=== PATIENT | male | born 1980 | race African-American/Black ===

== ENCOUNTER 2021-08-13 10:06 | Inpatient (IN) | payer MEDICAID, SELFPAY ==
[~2021-08-13] VITALS: Ht 193 cm; Wt 135.6 kg
[2021-08-13 10:06] VITALS: BP_SYST 131
[~2021-08-13 10:06] MED LIST: DEC4 PO; DOXY100C PO; FAMO20TA8 PO
--- NOTE | 2021-08-13 10:06 | NUR ---
Patient triaged and placed in waiting room. VSS and patient appears in no acute distress at this time. Accompanied by SELF, awaiting available bed, and MD notified of need for MSE.
--- NOTE | 2021-08-13 10:28 | NUR ---
DR FALLON OUT TO SEE PT IN OUTSIDE TRIAGE TENT
--- NOTE | 2021-08-13 10:50 | NUR ---
MARTINEZ Tracy in tent examining patient.
[2021-08-13 11:12] LABS: BASOPHILS # (AUTO) 0.1 K/uL (0.0-0.2); BASOPHILS % (AUTO) 0.4 % (0.0-2.0); EOSINOPHILS # (AUTO) 0.4 K/uL (0.0-0.4); EOSINOPHILS % (AUTO) 2.3 % (0.0-4.0); HEMATOCRIT 38.6 % (36-54); HEMOGLOBIN 12.9 g/dL (14.0-18.0); LYMPHOCYTES # (AUTO) 1.8 K/uL (1.0-5.5); LYMPHOCYTES % (AUTO) 11.1 % (20.5-51.5); MEAN CORPUSCULAR HEMOGLOBIN 30 pg (27-31); MEAN CORPUSCULAR HGB CONC 34 % (32-36); MEAN CORPUSCULAR VOLUME 89 fL (79.0-98.0); MONOCYTES # (AUTO) 1.6 K/uL (0.0-1.0); MONOCYTES % (AUTO) 9.8 % (1.7-9.3); NEUTROPHILS # (AUTO) 12.2 K/uL (1.8-7.7); NEUTROPHILS % (AUTO) 76.4 % (40.0-70.0); PLATELET COUNT (AUTO) 107 K/uL (130-430); RED BLOOD CELL COUNT(AUTO) 4.32 MIL/uL (4.2-6.2); WHITE BLOOD COUNT (AUTO) 15.9 K/uL (4.8-10.8)
[2021-08-13 11:32] LABS: CALCIUM 8.6 mg/dL (8.4-11.0); CREATININE 1.4 mg/dL (0.55-1.30); POTASSIUM 3.2 mmol/L (3.5-5.1)
[2021-08-13 11:38] LABS: ALBUMIN 2.5 g/dL (3.4-4.8); TOTAL BILIRUBIN 1.1 mg/dL (0.0-1.0)
--- NOTE | 2021-08-13 11:40 | NUR ---
urine specimen cup given and POC reviewed, pt sent to bathroom
[2021-08-13 12:00] LABS: BILIRUBIN,URINE 1+ (NEGATIVE); CLARITY/URINE CLEAR (CLEAR); COLOR,URINE YELLOW (YELLOW); GLUCOSE,URINE NEGATIVE (NEGATIVE); KETONES,URINE NEGATIVE (NEGATIVE); LEUKOCYTE ESTERASE ,URINE NEGATIVE (NEGATIVE); NITRITE, URINE NEGATIVE (NEGATIVE); PH,URINE 5.5 (5.0-8.0); PROTEIN URINE TRACE (NEGATIVE); UROBILINOGEN,URINE 0.2 (0.2-1.0)
[2021-08-13 12:06] LABS: BLOOD, URINE TRACE (NEGATIVE)
[2021-08-13] MEDS ORDERED: ACETAMINOPHEN 500 MG TABLET PO ONE (12:15)
[2021-08-13 12:21] LABS: BACTERIA,URINE None Seen /HPF (None Seen); WBC,URINE 0-3 /HPF (0-3)
[2021-08-13] MEDS ORDERED: cefTRIAXone 1 GM in D5W 50 ML IV ONE (13:00)
[2021-08-13] MEDS ORDERED: metroNIDAZOLE 500 mg/NS 100 ML IV ONE ×2 (13:00→17:45)
--- NOTE | 2021-08-13 13:00 | NUR ---
Pt. takes no home meds.
[2021-08-13] MEDS ORDERED: KCL 10 mEq in 50 mL (PREMIX) 50 ML IV ONE (13:15)
--- NOTE | 2021-08-13 13:44 | NUR ---
Notified ED Admitting regarding Dr. Cortes request for admission
[2021-08-13] MEDS ORDERED: cefTRIAXone 1 GM VIAL ONE (13:59)
--- NOTE | 2021-08-13 15:04 | NUR ---
Dr. Cortes aware of pts. pain, no new pain orders rec'd, Dr. Serrano will go talk to pt.
--- NOTE | 2021-08-13 15:24 | NUR ---
pt. remains in tent, unable to place on equipment monitor phototypesetting so holding potassium at this time
--- NOTE | 2021-08-13 16:10 | NUR ---
Rosa, life insurance agent, called back and stated that of the [facility] has no beds and gave auth to admit. stated to use her name and todays date as authJaquelin BARTH 08/13/2021
--- NOTE | 2021-08-13 16:12 | NUR ---
Rosa requested fax of facesheet and clinicals to [phone]
--- NOTE | 2021-08-13 17:12 | NUR ---
Patient to ER bed 6 for continuation of care. Side rails up.
--- NOTE | 2021-08-13 17:35 | NUR ---
Dr. Cosme at bedside reviewing POC
[2021-08-13] MEDS ORDERED: cefTRIAXone 1 GM IVPB PREMIX 50 ML IV ONE (18:45)
--- NOTE | 2021-08-13 19:15 | NUR ---
report to pm shift
--- NOTE | 2021-08-13 19:45 | NUR ---
Patient will be admitted to care of Dr. Foley. Admitted to Med Surg unit. Complete and up to date summary report printed. SBAR report to be given at bedside with opportunity for questions.
--- NOTE | 2021-08-13 20:32 | NUR ---
patient resting comfortably in [facility]. no acute distress no voiced complaints.
--- NOTE | 2021-08-13 21:52 | NUR ---
Patient resting quietly in bed. No acute distress noted. Given water and warm blanket. All needs addressed at this time. awaiting bed placement.
--- NOTE | 2021-08-13 23:31 | NUR ---
Patient asleep in bed. No acute distress noted. Awaiting bed placement
--- NOTE | 2021-08-14 00:59 | NUR ---
Transfer to [facility]. IV present no sign or symptom of infiltration.
--- NOTE | 2021-08-14 01:10 | NUR ---
ADMISSION NOTE Received patient from ER via gurney. Patient admitted with diagnosis of Diverticulitis, COVID positive. Patient is awake, alert, oriented X 4. Patient oriented to hospital room, call light, toileting, pain management and safety-teach back done. Patient informed that LAZARO Lacy will be primary nurse and that their room number is 115A. Personal belongings checked and Belongings List documented. Call light within reach.
[2021-08-14 01:58] VITALS: BP_SYST 122
[2021-08-14] MEDS ORDERED: FLU VACC QS2021-22(6MOS UP)/PF 0.5 ML/SYR SYRINGE I.M. PRN (02:00)
[2021-08-14] MEDS: D5/0.45 NS 1,000 ML IV SCH ×3 (04:08→15:33)
[2021-08-14 08:34] VITALS: BP_SYST 117
--- NOTE | 2021-08-14 10:39 | NUR ---
NURSE NOTE Pt has no c/o. No s/s of distress. A&Ox4. Skin intact. Fresh water provided to pt. Cleared room of clutter. Bed in lowest position and call light is within reach.
[2021-08-14 10:41] LABS: BASOPHILS % (AUTO) 0.3 % (0.0-2.0); EOSINOPHILS # (AUTO) 0.3 K/uL (0.0-0.4); EOSINOPHILS % (AUTO) 2.5 % (0.0-4.0); HEMATOCRIT 34.4 % (36-54); HEMOGLOBIN 11.8 g/dL (14.0-18.0); LYMPHOCYTES # (AUTO) 1.5 K/uL (1.0-5.5); LYMPHOCYTES % (AUTO) 12.9 % (20.5-51.5); MEAN CORPUSCULAR HEMOGLOBIN 31 pg (27-31); MEAN CORPUSCULAR HGB CONC 34 % (32-36); MEAN CORPUSCULAR VOLUME 89 fL (79.0-98.0); MONOCYTES # (AUTO) 1.2 K/uL (0.0-1.0); NEUTROPHILS # (AUTO) 8.6 K/uL (1.8-7.7); NEUTROPHILS % (AUTO) 74.3 % (40.0-70.0); PLATELET COUNT (AUTO) 124 K/uL (130-430); RED BLOOD CELL COUNT(AUTO) 3.87 MIL/uL (4.2-6.2); RED CELL DISTRIBUTION WIDTH 13.3 % (9.0-15.0); WHITE BLOOD COUNT (AUTO) 11.6 K/uL (4.8-10.8)
[2021-08-14 10:51] LABS: CALCIUM 8.4 mg/dL (8.4-11.0); CREATININE 1.15 mg/dL (0.55-1.30); POTASSIUM 3.4 mmol/L (3.5-5.1)
[2021-08-14] MEDS ORDERED: LORazepam 2 MG/ML VIAL IVP PRN (11:45)
[2021-08-14] MEDS: DECADRON 4 MG TABLET PO SCH (11:45)
[2021-08-14] MEDS ORDERED: ACETAMINOPHEN 325 MG TABLET PO PRN (11:45)
[2021-08-14] MEDS ORDERED: ONDANSETRON HCL 4 MG/2 ML VIAL IVP PRN (11:45)
[2021-08-14] MEDS ORDERED: HYDROcodone/ACETAMIN 10-325 MG TAB PO PRN (11:45)
[2021-08-14] MEDS ORDERED: IPRATROPIUM BROM 0.5 MG/2.5 ML VIAL.NEB (ATROVENT) INH PRN (11:45)
[2021-08-14] MEDS ORDERED: NALOXONE HCL 0.4 MG/ML AMP (NARCAN) IVP PRN ×2 (11:45)
[2021-08-14] MEDS ORDERED: ALBUTEROL SULFATE 0.083% 2.5 MG/3 ML VIAL.NEB INH PRN (11:45)
[2021-08-14] MEDS ORDERED: HYDROcodone/ACETAMIN 5-325 MG TAB (NORCO/ VICODIN) PO PRN (11:45)
--- NOTE | 2021-08-14 12:21 | NUR ---
NURSE NOTE Fresh water given to pt. Pt has no IV. Setup an IV set at bedside to place an IV. Pt aware.
[2021-08-14] MEDS: metroNIDAZOLE 500 MG TABLET PO SCH ×2 (13:47→20:09)
[2021-08-14] MEDS ORDERED: metroNIDAZOLE 500 mg/NS 100 ML IV SCH (14:00)
--- NOTE | 2021-08-14 14:15 | NUR ---
NURSE NOTE More fresh water given to pt 1l with ice and also jello was given to pt. A IV 20g was placed on pt's right AC. No infiltration noted. Pt has no c/o. All scheduled medications have been given at this time. A PCR covid swab was done and sent to lab. Pt's mother called for an update, educated mother on pt's care plan. Pt's mother verbalized understanding with no further questions. Pt A&Ox4. On his cellphone. Skin intact. bed in lowest position and call light is within reach.
[2021-08-14 15:09] VITALS: BP_SYST 127
[2021-08-14] MEDS: AMPICILLIN SODIUM/SULBACTAM NA 3 GM in NS 100 ML IV SCH (17:48)
[2021-08-14 18:46] VITALS: BP_SYST 129
--- NOTE | 2021-08-14 18:47 | NUR ---
NURSE NOTE Pt has fresh water at bedside. Dinner was served on a full liquid diet. Currently running on d5 5% with 1/2 NS 100ml/hr on his right 20g IV. IV is patent. Pt keeps saying he wants to speak to the doctor because he wants to go home. and mother of pt are upset because they feel the patient does not need to be there. Offered to pt that he can leave AMA and doctor is aware. Pt agreed to stay because he wants his prescriptions. Educated the pt the risks of leaving AMA and educated pt the benefits and risks of staying hospitalized. Pt verbalized understanding with no further questions. Pt did state he wants to speak to the doctor still. Doctor Foley paged and awaiting call so pt can speak with him.
[2021-08-14 20:00] VITALS: BP_SYST 122
[2021-08-14] MEDS ORDERED: DOXYCYCLINE HYCLATE 100 MG CAPSULE PO SCH (21:00)
[2021-08-14] MEDS ORDERED: CIPROFLOXACIN HCL 500 MG TABLET PO SCH (22:00)
[2021-08-15] VITALS: BP_SYST 128
[2021-08-15] MEDS: D5/0.45 NS 1,000 ML IV SCH ×3 (01:45→21:45)
[2021-08-15] MEDS: metroNIDAZOLE 500 MG TABLET PO SCH ×3 (05:34→20:33)
[2021-08-15] MEDS: AMPICILLIN SODIUM/SULBACTAM NA 3 GM in NS 100 ML IV SCH ×5 (05:34→18:35)
[2021-08-15 08:08] LABS: BASOPHILS % (AUTO) 0.2 % (0.0-2.0); EOSINOPHILS # (AUTO) 0.1 K/uL (0.0-0.4); EOSINOPHILS % (AUTO) 0.4 % (0.0-4.0); HEMATOCRIT 35.7 % (36-54); HEMOGLOBIN 12.1 g/dL (14.0-18.0); LYMPHOCYTES # (AUTO) 1.6 K/uL (1.0-5.5); LYMPHOCYTES % (AUTO) 11.7 % (20.5-51.5); MEAN CORPUSCULAR HEMOGLOBIN 31 pg (27-31); MEAN CORPUSCULAR HGB CONC 34 % (32-36); MEAN CORPUSCULAR VOLUME 91 fL (79.0-98.0); MONOCYTES # (AUTO) 1.3 K/uL (0.0-1.0); MONOCYTES % (AUTO) 9.5 % (1.7-9.3); NEUTROPHILS # (AUTO) 10.7 K/uL (1.8-7.7); NEUTROPHILS % (AUTO) 78.2 % (40.0-70.0); PLATELET COUNT (AUTO) 128 K/uL (130-430); RED BLOOD CELL COUNT(AUTO) 3.94 MIL/uL (4.2-6.2); RED CELL DISTRIBUTION WIDTH 13.3 % (9.0-15.0); WHITE BLOOD COUNT (AUTO) 13.7 K/uL (4.8-10.8)
[2021-08-15 08:09] LABS: CALCIUM 8.8 mg/dL (8.4-11.0); CREATININE 1.06 mg/dL (0.55-1.30); POTASSIUM 4.4 mmol/L (3.5-5.1)
[2021-08-15 08:22] VITALS: BP_SYST 141
[2021-08-15] MEDS: FAMOTIDINE 20 MG TABLET PO SCH (09:19)
--- NOTE | 2021-08-15 10:25 | NUR ---
NURSE NOTE Pt in bed resting playing video games on his game tablet. Pt is calm but upset that he is still in the hospital and that the doctor has not talked to him. Fresh water was given to pt and soft mechanical diet was served for breakfast. Pt ate 100% of his meal, tray was removed from his room. VSS. Skin intact. IV intact with no infiltration noted. A&Ox4. Ambulatory with steady gait. All scheduled medications have been given at this time. Pt has no fluids running. mini shifter nurse stopped fluids due to pt stating he only wants his IV to be used for antibiotics nothing else. Bed in lowest position and call light within reach.
--- NOTE | 2021-08-15 10:40 | NUR ---
NURSE NOTE Paged Dr. Foley in regards to pt's WBC which is at 13.7. Waiting for call back.
--- NOTE | 2021-08-15 10:49 | NUR ---
NURSE NOTE responded back in regards to pt not having an IV and refusing IV medications. WBC at 7.4. Dr. Morin stated he will come and take a look at his diabetic wounds. Addendum: 08/15/21 at 1052 by Thirty gauge and weigh machine adjuster called back and he was made aware that pt has WBC of 13.7. He stated that was fine and that he will do a ID consult.
[2021-08-15] MEDS: DECADRON 4 MG TABLET PO SCH (11:23)
[2021-08-15 12:43] VITALS: BP_SYST 135
--- NOTE | 2021-08-15 14:36 | NUR ---
CONSULTATION PAGED/CALLED Reason for Consultation: [] ABD PAIN Person Who was Notified: [] MARY LOU Consulting Physician: [] DR Rosa SCHAFER Enterprise Integration Architect Specialty: [] GI Ordering Physician: [] DR EATON
--- NOTE | 2021-08-15 14:37 | NUR ---
CONSULTATION PAGED/CALLED Reason for Consultation: [] COVID Person Who was Notified: [] MARY LOU Consulting Physician: [] DR MEADOWS Video Technician Specialty: [] ID Ordering Physician: [] DR EATON
--- NOTE | 2021-08-15 15:13 | NUR ---
NURSE NOTE Pt in bed resting with no s/s of distress. Pt has no c/o. Pt ate all of his breakfast and lunch 100%. Skin is intact. Fresh water with ice was given at bedside. All scheduled medications have been given to pt at this time. Dr. Morin saw pt and explained to pt his condition and that he will place a GI consult. Pt aware and verbalized understanding with no further questions. Pt is A&Ox4. VSS. Bed in lowest position and call light is within reach. IV patent and intact.
[2021-08-15 17:18] VITALS: BP_SYST 126
[2021-08-15 20:00] VITALS: BP_SYST 122
[2021-08-16] VITALS: BP_SYST 112
[2021-08-16] MEDS: AMPICILLIN SODIUM/SULBACTAM NA 3 GM in NS 100 ML IV SCH ×4 (00:05→23:39)
[2021-08-16] MEDS: metroNIDAZOLE 500 MG TABLET PO SCH ×3 (05:33→23:39)
[2021-08-16] MEDS: D5/0.45 NS 1,000 ML IV SCH (07:45)
[2021-08-16 08:00] VITALS: BP_SYST 111
--- NOTE | 2021-08-16 08:00 | NUR ---
Opening notes: Pt A/Ox4 sitting in chair, VVS, No s/s of respiratory distress. IV site clean dry and intact. Fall and safety precautions in place, call light with in reach, will continue to monitor.
[2021-08-16] MEDS: FAMOTIDINE 20 MG TABLET PO SCH (09:15)
[2021-08-16] MEDS: DECADRON 4 MG TABLET PO SCH (12:50)
[2021-08-16 16:00] VITALS: BP_SYST 114
--- NOTE | 2021-08-16 17:07 | NUR ---
Dietitian Recommendations * Recommend soft (low fiber/bland) diet w/ Ensure Clear TID, Ja BID (supplements yield 900 kcal/day, 29 gm protein/day) JOSS, RD Please refer to Nutrition Assessment for details. Addendum: 08/16/21 at [address] Amended: Links added.
--- NOTE | 2021-08-16 18:28 | NUR ---
Closing notes: Pt A/Ox4, eating dinner in chair. No s/s of respiratory distress, no complains of pain or discomfort. Pt states he wants to go home and said ID cleared him, but no discharge planning orders yet. IV clean, dry and intact. Isolation, safety and fall precautions in place, call light with in reach, will endorse to shift supervisor melting.
--- NOTE | 2021-08-16 19:50 | NUR ---
Opening note Patient is awake, resting in bed, no distress. He is talking on cell phone. Nonlabored breathing on room air, denies pain. IV on RAC is saline locked. Call light w/in reach.
[2021-08-16 20:00] VITALS: BP_SYST 118
[2021-08-17 00:05] VITALS: BP_SYST 111
[2021-08-17] MEDS: D5/0.45 NS 1,000 ML IV SCH (01:43)
[2021-08-17] MEDS: AMPICILLIN SODIUM/SULBACTAM NA 3 GM in NS 100 ML IV SCH (06:28)
[2021-08-17] MEDS: metroNIDAZOLE 500 MG TABLET PO SCH (06:28)
[2021-08-17 08:00] VITALS: BP_SYST 138
[2021-08-17 09:31] LABS: BASOPHILS % (AUTO) 0.3 % (0.0-2.0); EOSINOPHILS % (AUTO) 0.3 % (0.0-4.0); HEMATOCRIT 38.1 % (36-54); HEMOGLOBIN 12.9 g/dL (14.0-18.0); LYMPHOCYTES # (AUTO) 2.4 K/uL (1.0-5.5); LYMPHOCYTES % (AUTO) 19.3 % (20.5-51.5); MEAN CORPUSCULAR HEMOGLOBIN 30 pg (27-31); MEAN CORPUSCULAR HGB CONC 34 % (32-36); MEAN CORPUSCULAR VOLUME 89 fL (79.0-98.0); MONOCYTES # (AUTO) 0.8 K/uL (0.0-1.0); MONOCYTES % (AUTO) 6.3 % (1.7-9.3); NEUTROPHILS # (AUTO) 9.3 K/uL (1.8-7.7); NEUTROPHILS % (AUTO) 73.8 % (40.0-70.0); PLATELET COUNT (AUTO) 169 K/uL (130-430); RED BLOOD CELL COUNT(AUTO) 4.29 MIL/uL (4.2-6.2); WHITE BLOOD COUNT (AUTO) 12.6 K/uL (4.8-10.8)
[2021-08-17 09:50] LABS: CALCIUM 8.7 mg/dL (8.4-11.0); CREATININE 1.15 mg/dL (0.55-1.30)
[2021-08-17] MEDS: FAMOTIDINE 20 MG TABLET PO SCH (10:24)
[2021-08-17] MEDS ORDERED: AMOX-426 PO (10:38)
[2021-08-17] MEDS ORDERED: METR500T PO (10:38)
[2021-08-17 11:09] VITALS: BP_SYST 138
[2021-08-17] MEDS: DECADRON 4 MG TABLET PO SCH (11:45)
--- NOTE | 2021-08-17 11:50 | NUR ---
NURSING NOTES 0700-1150AM: 0710AM: PATIENT IS RESTING IN BED QUIETLY. NO ADDITIONAL DISTRESS NOTED. BED IN LOW AND LOCK POSITION. CALL LIGHT WITHIN REACH. STABLE CONDITION AT THIS TIME. CONT WITH DROPLET PRECAUTION DUE TO + COVID. 0800AM: EXPLAINED POC AND PATIENT VERBALIZED UNDERSTANDING. WILL CONT TO MONITOR. 1000AM: PATIENT IS SITTING UP IN THE CHAIR WATCHING VIDEOS ON HIS PHONE. NO ADDITIONAL DISTRESS NOTED. RA 97%. WILL CONT TO MONITOR. 1130AM: DC INSTRUCTIONS GIVEN AND EXPLAINED WELL PRESCRIPTION (ABT). PATIENT VERBALIZED UNDERSTANDING. IV REMOVED FROM THE RAC. IV CATH INTACT WHEN REMOVED. NO BLEEDING NOTED. COVER SITE WITH GAUZE AND SECURE WITH TAPE. AWAITING FOR PATIENT'S MOTHER TO PICK PATIENT UP. 1150AM: PATIENT LEFT THE UNIT IN A STABLE CONDITION ACCOMPANIED BY THE PRIMARY NURSE. PATIENT REFUSED WC BUT RATHER WALK. PATIENT IS ABLE TO AMBULATED INDEPENDENTLY WITH STEADY GAIT. ALL PERSONAL BELONGINGS GIVEN TO PATIENT AND DENIES MISSING ITEMS. REFUSED TO TAKE STEROID PO AT THIS TIME AND STATED HE WILL TAKE IT AT HOME. PICKED UP BY PATIENT'S MOTHER. NO ADDITIONAL DISTRESS NOTED.
== END 2021-08-17 11:50 | disposition home or self-care (01) | DRG 244 ==
LOC: SED 11:43 → SMU 19:42
PROVIDERS: ADMIT Preventive Medicine Preventive Medicine/Occupational Environmental Medicine; ATTEND Preventive Medicine Preventive Medicine/Occupational Environmental Medicine
DX: K57.92 Diverticulitis of intestine, part unspecified, without perforation or abscess without bleeding (principal); U07.1 COVID-19; N17.9 Acute kidney failure, unspecified; E87.1 Hypo-osmolality and hyponatremia; E88.09 Other disorders of plasma-protein metabolism, not elsewhere classified; E87.6 Hypokalemia; E66.9 Obesity, unspecified; N28.1 Cyst of kidney, acquired; N28.89 Other specified disorders of kidney and ureter; Z68.36 Body mass index [BMI] 36.0-36.9, adult
CPT/HCPCS: 36415; 76376; 80048; 80053; 81000; 82728; 83690; 85025; 85379; 86140; 87081; 96365; 96367; 96375; 99285; J0295; J0696; J3480; J8540; U0003

== ENCOUNTER 2022-04-30 08:51 | Emergency (ER) | payer MEDICAID ==
[~2022-04-30] VITALS: Ht 193 cm; Wt 138.3 kg
[~2022-04-30 08:51] MED LIST changes: +AMOX-426 PO; +METR500T PO
[2022-04-30 08:58] VITALS: BP_SYST 137
--- NOTE | 2022-04-30 09:00 | NUR ---
Placed in room 8 . Placed on medical records custodian, blood pressure machine and pulse oximeter. To gown for exam. Side rails up. Report given to LAZARO ABDUL.
--- NOTE | 2022-04-30 09:05 | NUR ---
PT CAME IN FROM HOME, REPORTS YESTERDAY HE HAD TO URINATE BUT WAS NOT IN A PLACE WHERE HE COULD, SO HE HELD THE TIP OF HIS PENIS WITH HIS HAND, HEARD A POP. THEN HAD PAIN AND BLEEDING WHEN HE DID URINATE, STILL HAVING PAIN. DENIES BLEEDING NOW WITH URINATION BUT WOULD LIKE TO BE SEEN BY A PHYSICIAN. PT IS AMBULATORY, AAOX4, VSS
--- NOTE | 2022-04-30 09:10 | NUR ---
ER DR. ROSARIO EXAMINING PT
[2022-04-30 10:13] LABS: BASOPHILS % (AUTO) 0.4 % (0.0-2.0); EOSINOPHILS # (AUTO) 0.1 K/uL (0.0-0.4); EOSINOPHILS % (AUTO) 2.3 % (0.0-4.0); LYMPHOCYTES # (AUTO) 2.3 K/uL (1.0-5.5); LYMPHOCYTES % (AUTO) 41.5 % (20.5-51.5); MEAN CORPUSCULAR VOLUME 91 fL (79.0-98.0); MONOCYTES # (AUTO) 0.4 K/uL (0.0-1.0); NEUTROPHILS # (AUTO) 2.7 K/uL (1.8-7.7); NEUTROPHILS % (AUTO) 47.8 % (40.0-70.0); PLATELET COUNT (AUTO) 103 K/uL (130-430); RED BLOOD CELL COUNT(AUTO) 4.51 MIL/uL (4.2-6.2); RED CELL DISTRIBUTION WIDTH 13.2 % (9.0-15.0); WHITE BLOOD COUNT (AUTO) 5.6 K/uL (4.8-10.8)
[2022-04-30 10:19] LABS: CALCIUM 8.8 mg/dL (8.4-11.0); CREATININE 1.24 mg/dL (0.55-1.30); POTASSIUM 4.3 mmol/L (3.5-5.1)
--- NOTE | 2022-04-30 10:32 | NUR ---
Urine specimen collected and forwarded to lab. Results given to MARTINEZ WHYTE.
[2022-04-30 11:13] LABS: BILIRUBIN,URINE NEGATIVE (NEGATIVE); BLOOD, URINE NEGATIVE (NEGATIVE); CLARITY/URINE CLEAR (CLEAR); COLOR,URINE YELLOW (YELLOW); GLUCOSE,URINE NEGATIVE (NEGATIVE); KETONES,URINE NEGATIVE (NEGATIVE); LEUKOCYTE ESTERASE ,URINE NEGATIVE (NEGATIVE); NITRITE, URINE NEGATIVE (NEGATIVE); PROTEIN URINE NEGATIVE (NEGATIVE); UROBILINOGEN,URINE 0.2 (0.2-1.0)
[2022-04-30] MEDS ORDERED: NITR-85 PO (12:02)
--- NOTE | 2022-04-30 12:45 | NUR ---
Patient given written and verbal discharge instructions and verbalizes understanding. ER Dr. Gerri WHYTE discussed with patient the results and treatment provided. Patient in stable condition. ID arm band removed. IV catheter removed intact and dressing applied, no active bleeding. Rx of Macrobid given. Patient educated on pain management and to follow up with PMD. Pain Scale 6/10. Opportunity for questions provided and answered. Medication side effect fact sheet provided.
== END 2022-04-30 12:45 | disposition home or self-care (01) ==
LOC: SED 08:51
DX: R31.0 Gross hematuria (principal); N48.89 Other specified disorders of penis; R03.0 Elevated blood-pressure reading, without diagnosis of hypertension; Z79.899 Other long term (current) drug therapy
CPT/HCPCS: 36415; 76856-TC; 80048; 81003; 85025; 99284